=== PATIENT | female | born 1935 | race Hispanic/Latino ===

== ENCOUNTER 2019-02-17 19:49 | Emergency (ER) | payer OTHER ==
[~2019-02-17] VITALS: Ht 167.6 cm; Wt 99.8 kg
[~2019-02-17 19:49] MED LIST: ALPRAZOLAM0.5 M1 PO; AMBIEN10 MG PO; APRISO0.375 GM PO; BACLOFEN20 MG PO; BENAZEPRIL HCL10 MG PO; CARAFATE1 GM/10 ML PO; CARTIA XT240 MG PO; CELEBREX100 MG PO; CHLORDIAZEPOXI1 EACH PO; CLONAZEPAM1 MG PO; CYCLOBENZAPRINE10 MG PO; DICYCLOMINE HCL20 MG PO; DILTIAZEM ER120 M1 PO; DRONABINOL PO; FAMOTIDINE40 MG PO; FLAGYL500 MG PO; GABAPENTIN100 MG PO; Gabapentin PO; HYDROCODONE-AP1 EAC2 PO; HYOSCYAMINE0.375 MG PO; KLOR-CON 1010 MEQ PO; LASIX40 MG PO; LEVAQUIN500 MG PO; LIDODERM700 MG SUBD; MEDROL4 MG/DOSE- PO; METHYLPHENIDATE5 M1 PO; MIRALAX17 G1 PO; Morphine Sulfate IV; NITRO-DUR1 EAC2 TD; NORCO 10-325 T1 EACH PO; OMEPRAZOLE40 MG PO; OXYCODONE HCL20 M1 PO; OXYCONTIN10 MG PO; PANTOPRAZOLE SO20 MG PO; POTASSIUM CHLO20 ME1; PROMETHAZINE HC25 M1 PO; PROMETHEGAN25 MG PO; PROZAC40 MG PO; QUESTRAN PACKET4 GM PO; SIMVASTATIN40 MG PO; TOVIAZ8 MG PO; ULTRAM 50MG50 MG PO; VENLAFAXINE HCL75 M1 PO; XANAX0.25 MG PO; Z ALPRAZOLAM PO; Z GEODON PO; Z.0.CYMBALTA60 MG PO; Z.0.FLURAZEPAM HCL30 PO; Z.0.KLONOPIN0.5 MG PO; Z.0.KLONOPIN1 MG PO; Z.0.OMEPRAZOLE40 MG PO; Z.0.RESTORIL30 MG PO; Z.0.TOVIAZ8 MG PO; [UNRECOGNIZED DRUG - OTHER] PO; [UNRECOGNIZED DRUG - OTHER] PO; [UNRECOGNIZED DRUG - OTHER] PO
[2019-02-17] MEDS ORDERED: TRAMADOL HCL 50 MG TAB PO ONE (20:30)
--- NOTE | 2019-02-17 20:38 | NUR ---
PT MEDICATED FOR PAIN WITH 50MG OF TRAMADOL
--- NOTE | 2019-02-17 21:15 | NUR ---
PT STATED, "THAT PAIN PILL YOU GAVE ME DIDN'T WORK." JEANA ROBERT INFORMED
--- NOTE | 2019-02-17 21:29 | Diagnostic Imaging Report ---
Lumbar Spine Radiographs: 3 views HISTORY: Pain. Lower back pain. Fall. COMPARISON: None available. DISCUSSION: Some of the osseous structures are partially obscured by stool and bowel gas. There are five non-rib bearing lumbar vertebral bodies. Straightening of the normal lumbar lordosis. Grade 1 retrolisthesis of L2 on L3 secondary to facet arthropathy. No displaced fracture or compression deformity is identified. Disc Spaces: Multifocal disc space narrowing. Moderate to severe at L2-L3. Moderate at L4-L5. Facets: Moderate multilevel facet arthrosis at L1-L2, L3-L4. Mild at L4-L5, L5-S1. Severe vascular calcifications. IMPRESSION: 1. No acute radiographic abnormality. 2. 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 Signed by: Dr. Jonathan Fletcher M.D. on 02/17/2019 9:25 PM
--- NOTE | 2019-02-17 21:32 | Diagnostic Imaging Report ---
THORACIC SPINE 2VW - 3 views HISTORY: Pain. lower back pain. COMPARISON: None available. FINDINGS: Bones: Wedge compression deformity of T6 vertebral body. Compression deformity of T10 vertebral body. Osseous alignment is within normal limits. Joints: The joint spaces are well-maintained. Soft tissues: The soft tissues appear unremarkable. IMPRESSION: 1. Wedge compression deformity of T6 vertebral body. This is likely chronic. 2. Compression deformity of T10 vertebral body. This is age indeterminate. Correlate for focal tenderness. No available prior chest x-ray or thoracic x-rays are available for comparison. There is a high degree of suspicion, recommend MR thoracic spine without contrast. Signed by: Dr. Jonathan Fletcher M.D. on 02/17/2019 9:28 PM
[2019-02-17] MEDS ORDERED: HYDROMORPHONE 1MG/1ML INJ IM STA (21:45)
[2019-02-17] MEDS ORDERED: HYDROMORPHONE 2MG/ML 2 MG/ML ML IM ONE (22:00)
[2019-02-17] MEDS ORDERED: HYDROMORPHONE 2MG/ML 2 MG/ML ML IV ONE (22:00)
== END 2019-02-17 22:28 | disposition home or self-care (01) ==
LOC: ER 19:49
DX: M54.6 Pain in thoracic spine (principal); M48.54XS Collapsed vertebra, not elsewhere classified, thoracic region, sequela of fracture; M54.5 Low back pain; M47.896 Other spondylosis, lumbar region; G89.29 Other chronic pain; W01.0XXA Fall on same level from slipping, tripping and stumbling without subsequent striking against object, initial encounter; F32.9 Major depressive disorder, single episode, unspecified
CPT/HCPCS: 72070; 72100; 99283; J1170